=== PATIENT | male | born 1960 | race Caucasian/White ===

== ENCOUNTER 2017-08-14 07:53 | Day surgery (SDC) | payer OTHER ==
[2017-08-14] MEDS ORDERED: LACTATED RINGERS 1,000 ML IV ONE (08:31)
[2017-08-14] MEDS ORDERED: MIDAZOLAM 2 MG/2 ML VIAL IVP ONE (09:14)
[2017-08-14] MEDS ORDERED: fentaNYL 100 MCG/2 ML VIAL IVP ONE (09:14)
[2017-08-14 10:02] VITALS: BP 120/82
== END 2017-08-14 07:54 | disposition home or self-care (01) ==
LOC: SDS 07:53
PROVIDERS: ATTEND Surgery
PROC: 0DBL8ZX Excision of Transverse Colon, Via Natural or Artificial Opening Endoscopic, Diagnostic (ICD-10-PCS; 2017-08-14)
PROC: 3E0H8GC Introduction of Other Therapeutic Substance into Lower GI, Via Natural or Artificial Opening Endoscopic (ICD-10-PCS; 2017-08-14)
PROC: 0DBF8ZX Excision of Right Large Intestine, Via Natural or Artificial Opening Endoscopic, Diagnostic (ICD-10-PCS; principal; 2017-08-14 09:00)
DX: Z12.11 Encounter for screening for malignant neoplasm of colon (principal); D12.0 Benign neoplasm of cecum; D12.2 Benign neoplasm of ascending colon; D12.3 Benign neoplasm of transverse colon; K64.4 Residual hemorrhoidal skin tags; E78.5 Hyperlipidemia, unspecified
CPT/HCPCS: 45381; 45384; 45385; J7120